=== PATIENT | female | born 1955 | race African-American/Black ===

== ENCOUNTER 2024-11-04 09:53 | Emergency (ER) | payer MEDICARE, MEDICAID ==
[~2024-11-04] VITALS: Ht 167.6 cm; Wt 80.0 kg
[2024-11-04 10:00] VITALS: O2SAT 100
[2024-11-04 11:13] LABS: BASOPHILS % 0.3 % (0.0-2.0); DIFFERENTIAL COMMENT 0; EOSINOPHILS % 0.1 % (0.0-5.0); HEMATOCRIT. 36.3 % (36.0-48.0); HEMOGLOBIN. 11.9 g/dL (12.0-16.0); LYMPHOCYTES % 17.4 % (20.0-50.0); MEAN CORPUSCULAR HEMOGLOBIN 29.1 pg (28.0-32.0); MEAN CORPUSCULAR HGB CONC 32.8 g/dL (31.0-37.0); MEAN CORPUSCULAR VOLUME 88.6 fL (81.0-99.0); MEAN PLATELET VOLUME 9.8 fl (7.4-10.4); MONOCYTES % 10.9 % (2.0-8.0); NEUTROPHILS % 71.3 % (40.0-76.0); PLATELET 205 x1000/uL (130-400); RED BLOOD CELL COUNT 4.09 mill/uL (4.2-5.4); RED CELL DISTRIBUTION WIDTH 15.3 % (11.6-14.6); WHITE BLOOD COUNT 8.3 x1000/uL (4.5-11.0)
[2024-11-04 11:16] LABS: CHLORIDE 110 mEq/L (98-107); POTASSIUM 3.7 mEq/L (3.5-5.1); SODIUM 139 mEq/L (136-145)
[2024-11-04 11:17] LABS: CALCIUM 9.5 mg/dL (8.7-10.4); CARBON DIOXIDE 23 mEq/L (21-32)
[2024-11-04 11:22] LABS: CREATININE 1.2 mg/dL (0.6-1.0); GLUCOSE 108 mg/dL (70-105); UREA NITROGEN BLOOD 11 mg/dL (9-23)
[2024-11-04 11:24] LABS: TROPONIN I HIGH SENSITIVITY 18 ng/L (3.0-34)
[2024-11-04] MEDS: ASPIRIN 81MG TABLET PO ONE (11:54)
[2024-11-04 12:25] VITALS: BP 172/98; PULSE 90; RESP 16; TEMP 37.1; O2SAT 99
== END 2024-11-04 12:26 | disposition home or self-care (01) ==
LOC: ER 10:07
DX: I16.0 Hypertensive urgency (principal); I11.0 Hypertensive heart disease with heart failure; I25.2 Old myocardial infarction; I49.3 Ventricular premature depolarization; I50.9 Heart failure, unspecified; R56.9 Unspecified convulsions
CPT/HCPCS: 36415; 71045; 80048; 83880; 84484; 85025; 93005; 99285

== ENCOUNTER 2025-01-08 10:15 | Inpatient (IN) | payer MEDICARE, MEDICAID ==
[~2025-01-08] VITALS: Ht 167.6 cm; Wt 75.7 kg
[2025-01-08 10:54] LABS: CHLORIDE 108 mEq/L (98-107); POTASSIUM 3.3 mEq/L (3.5-5.1); SODIUM 140 mEq/L (136-145)
[2025-01-08 10:55] LABS: CARBON DIOXIDE 20 mEq/L (21-32)
[2025-01-08 10:56] LABS: CALCIUM 9.3 mg/dL (8.7-10.4)
[2025-01-08 10:57] LABS: BASOPHILS % 0.9 % (0.0-2.0); DIFFERENTIAL COMMENT 0; EOSINOPHILS % 0.4 % (0.0-5.0); HEMOGLOBIN. 12.3 g/dL (12.0-16.0); LYMPHOCYTES % 17.7 % (20.0-50.0); MEAN CORPUSCULAR HEMOGLOBIN 30.6 pg (28.0-32.0); MEAN CORPUSCULAR HGB CONC 33.4 g/dL (31.0-37.0); MEAN CORPUSCULAR VOLUME 91.6 fL (81.0-99.0); MONOCYTES % 10.5 % (2.0-8.0); NEUTROPHILS % 70.5 % (40.0-76.0); PLATELET 224 x1000/uL (130-400); RED BLOOD CELL COUNT 4.03 mill/uL (4.2-5.4); RED CELL DISTRIBUTION WIDTH 16.5 % (11.6-14.6); WHITE BLOOD COUNT 5.4 x1000/uL (4.5-11.0)
[2025-01-08 11:00] LABS: CREATININE 1.3 mg/dL (0.6-1.0); GLUCOSE 142 mg/dL (70-105); PARTIAL THROMBOPLASTIN TIME 27.6 sec (23.4-31.0); PROTHROMBIN TIME 10.9 sec (9.6-11.0)
[2025-01-08] MEDS ORDERED: ALBUTEROL (0.083%) 2.5MG/3ML NEB HHN SCH (11:00)
[2025-01-08 11:01] LABS: UREA NITROGEN BLOOD 14 mg/dL (9-23)
[2025-01-08 11:05] LABS: TROPONIN I HIGH SENSITIVITY 55 ng/L (3.0-34)
[2025-01-08 11:28] VITALS: PULSE 95; RESP 25; O2SAT 97
[2025-01-08] MEDS: METHYLPREDNISOLONE SOD SUCC 125MG/2ML (ACT-O-VIAL) IV STA (11:28)
[2025-01-08] MEDS: IPRATROPIUM BROMIDE (0.02%) 0.5MG/2.5ML NEB HHN STA (11:29)
[2025-01-08 12:00] VITALS: PULSE 100; RESP 22; O2SAT 98
[2025-01-08] MEDS: CEFTRIAXONE 1GM/50ML 50 ML IV ONE (12:11)
[2025-01-08] MEDS: FUROSEMIDE 40MG/4ML VIAL IVP ONE (12:11)
[2025-01-08 12:30] VITALS: PULSE 102; RESP 23; O2SAT 98
[2025-01-08] MEDS: AZITHROMYCIN 500MG/250ML 250 ML IV STA (13:03)
[2025-01-08 14:10] LABS: TROPONIN I HIGH SENSITIVITY 49 ng/L (3.0-34)
[2025-01-08] MEDS: ISOSORBIDE MONONITRATE 30MG TABLET SR 24HR PO SCH (15:15)
[2025-01-08] MEDS: ASPIRIN 325MG EC TABLET PO SCH (15:30)
[2025-01-08] MEDS: ENOXAPARIN 40MG/0.4ML SYR SUBCUT SCH (15:30)
[2025-01-08] MEDS ORDERED: MAGNESIUM/ALUMINUM HYDROXIDE/SIMETHICONE 30ML UDC PO PRN (15:30)
[2025-01-08] MEDS ORDERED: DEXTROSE 50% WATER 50ML SYRINGE IV PRN (15:30)
[2025-01-08] MEDS ORDERED: MORPHINE SULFATE 2 MG/ML INJ (NOT FOR IM USE) IV PRN (15:30)
[2025-01-08] MEDS ORDERED: GUAIFENESIN 200MG/10ML SUGAR FREE UDC PO PRN (15:30)
[2025-01-08] MEDS ORDERED: HYDRALAZINE 20MG/ML VIAL IV PRN (15:30)
[2025-01-08 16:00] VITALS: BP 188/115; PULSE 89; RESP 20; TEMP 36.7; O2SAT 98
[2025-01-08] MEDS: METHYLPREDNISOLONE SOD SUCC 40MG/ML (ACT-O-VIAL) IV SCH (16:20)
[2025-01-08] MEDS: POTASSIUM CHLORIDE 20MEQ/PACKET PO SCH (16:25)
[2025-01-08] MEDS: NIFEDIPINE XL 30MG TAB PO SCH (16:31)
[2025-01-08] MEDS: BLOOD SUGAR DIAGNOSTIC STRIP TEST SCH (17:40)
[2025-01-08 19:05] VITALS: BP 188/115; PULSE 89; RESP 20; TEMP 36.7
[2025-01-08 20:00] VITALS: BP 150/94; PULSE 95; RESP 20; TEMP 36.6; O2SAT 95
[2025-01-08] MEDS ORDERED: ALBU18HF2 IH (21:00)
[2025-01-08] MEDS ORDERED: DIPH50TA (21:00)
[2025-01-08] MEDS ORDERED: MELA10TA20 MT (21:00)
[2025-01-08] MEDS ORDERED: HYDR25TA MT (21:00)
[2025-01-08] MEDS ORDERED: POLY17PO3 PO (21:00)
[2025-01-08] MEDS ORDERED: VALS160T28 MT (21:00)
[2025-01-08] MEDS ORDERED: AMLO10TA80 MT (21:00)
[2025-01-08] MEDS: METOPROLOL TARTRATE 25MG TABLET PO SCH (21:46)
[2025-01-08] MEDS: INSULIN LISPRO 100 UNITS/ML SUBCUT SCH (21:47)
[2025-01-08] MEDS: ATORVASTATIN CALCIUM 40MG TABLET PO SCH (21:48)
[2025-01-08] MEDS: MELATONIN 3MG TABLET PO SCH (22:21)
[2025-01-09] VITALS (8 sets, daily range): BP systolic 124–159; BP diastolic 82–104; PULSE 78–92; RESP 17–22; TEMP 36.2–36.6; O2SAT 95–99
[2025-01-09] MEDS: HYDROCODONE/ACETAMINOPHEN 5/325MG TABLET PO PRN (05:11)
[2025-01-09 06:03] LABS: *AMPHETAMINES SCREEN URINE NEGATIVE (NEGATIVE)
[2025-01-09 06:04] LABS: *BARBITURATES SCREEN URINE NEGATIVE (NEGATIVE); *BENZODIAZEPINES SCREEN URINE NEGATIVE (NEGATIVE); *COCAINE SCREEN URINE NEGATIVE (NEGATIVE); CANNABINOID URINE SCREEN NEGATIVE (NEGATIVE); ECSTASY MDMA SCREEN URINE NEGATIVE (NEGATIVE); METHADONE URINE SCREEN NEGATIVE (NEGATIVE); OPIATES URINE SCREEN NEGATIVE (NEGATIVE); PHENCYCLIDINE URINE SCREEN NEGATIVE (NEGATIVE)
[2025-01-09 06:44] LABS: POTASSIUM 3.9 mEq/L (3.5-5.1)
[2025-01-09 06:45] LABS: CALCIUM 10.4 mg/dL (8.7-10.4)
[2025-01-09 06:50] LABS: CREATININE 1.5 mg/dL (0.6-1.0)
[2025-01-09] MEDS: FUROSEMIDE 40MG/4ML VIAL IVP SCH (08:44)
[2025-01-09] MEDS: EMPAGLIFLOZIN 10MG TABLET PO SCH (08:44)
[2025-01-09] MEDS: ASPIRIN 81MG TABLET PO SCH (08:44)
[2025-01-09] MEDS: PANTOPRAZOLE SODIUM 40 MG/VIAL IV SCH (09:00)
[2025-01-09] MEDS: IPRATROPIUM/ALBUTEROL 0.5-3(2.5)MG/3ML NEB NEB SCH (09:35)
[2025-01-09 09:44] LABS: BG BASE EXCESS -1.8 mmol/L (-2.0-3.0); BG DEOXYHEMOGLOBIN 13.4 % (0.0-5.0); BG FRACTION INSPIRED OXYGEN 21; BG OXYGEN SATURATION 86.5 % (94.0-98.0); BG OXYHEMOGLOBIN 85.6 % (94.0-98.0); BG PCO2 34.6 mmHg (32.0-45.0); BG PH 7.422 (7.350-7.450); BG PO2 52.8 mmHg (83.0-108.0); BG SAMPLE SITE RIGHT RADIAL; BG TOTAL HEMOGLOBIN 13.4 g/dL (12.0-16.0); BG VENT MODE ROOM AIR
[2025-01-09] MEDS ORDERED: MEDICATION NOT ON FORMULARY EA (Melatonin 1 TAB) MT SCH (21:00)
[2025-01-10] VITALS (9 sets, daily range): BP systolic 107–138; BP diastolic 64–93; PULSE 71–90; RESP 17–22; TEMP 36.3–36.6; O2SAT 95–100
[2025-01-10 07:41] LABS: BASOPHILS % 0.3 % (0.0-2.0); HEMATOCRIT. 36.9 % (36.0-48.0); HEMOGLOBIN. 12.3 g/dL (12.0-16.0); LYMPHOCYTES % 7.1 % (20.0-50.0); MEAN CORPUSCULAR HEMOGLOBIN 30.4 pg (28.0-32.0); MEAN CORPUSCULAR HGB CONC 33.4 g/dL (31.0-37.0); MEAN CORPUSCULAR VOLUME 91.1 fL (81.0-99.0); MEAN PLATELET VOLUME 10.5 fl (7.4-10.4); MONOCYTES % 3.3 % (2.0-8.0); NEUTROPHILS % 89.3 % (40.0-76.0); PLATELET 264 x1000/uL (130-400); RED BLOOD CELL COUNT 4.05 mill/uL (4.2-5.4); RED CELL DISTRIBUTION WIDTH 16.1 % (11.6-14.6); WHITE BLOOD COUNT 14.7 x1000/uL (4.5-11.0)
[2025-01-10 08:06] LABS: POTASSIUM 3.9 mEq/L (3.5-5.1)
[2025-01-10 08:07] LABS: CALCIUM 9.9 mg/dL (8.7-10.4)
[2025-01-10 08:11] LABS: CREATININE 1.9 mg/dL (0.6-1.0)
[2025-01-10] MEDS ORDERED: NALOXONE HCL 0.4MG/ML VIAL IV PRN (11:45)
[2025-01-10] MEDS: SODIUM CHLORIDE 0.9% 1,000 ML IV SCH (12:01)
[2025-01-10] MEDS: ENOXAPARIN 30MG/0.3ML SYR SUBCUT SCH (12:53)
[2025-01-11] VITALS (7 sets, daily range): BP systolic 128–149; BP diastolic 68–114; PULSE 78–83; RESP 16–20; TEMP 36.1–36.8; O2SAT 98–99
[2025-01-11 06:27] LABS: POTASSIUM 3.9 mEq/L (3.5-5.1)
[2025-01-11 06:28] LABS: CALCIUM 9.7 mg/dL (8.7-10.4)
[2025-01-11 06:33] LABS: CREATININE 2.2 mg/dL (0.6-1.0)
[2025-01-11] MEDS: QUETIAPINE FUMARATE 25MG TABLET PO SCH (16:41)
[2025-01-12] VITALS (7 sets, daily range): BP systolic 130–165; BP diastolic 80–99; PULSE 68–83; RESP 16–20; TEMP 35.9–37.1; O2SAT 97–99
[2025-01-12] MEDS: METHYLPREDNISOLONE SOD SUCC 40MG/ML (ACT-O-VIAL) IV SCH (06:00)
[2025-01-12] MEDS: CLONIDINE 0.1MG TABLET PO PRN (07:13)
[2025-01-12 09:54] LABS: BASOPHILS % 0.1 % (0.0-2.0); HEMATOCRIT. 37.9 % (36.0-48.0); HEMOGLOBIN. 12.4 g/dL (12.0-16.0); LYMPHOCYTES % 12.4 % (20.0-50.0); MEAN CORPUSCULAR HEMOGLOBIN 30.1 pg (28.0-32.0); MEAN CORPUSCULAR HGB CONC 32.9 g/dL (31.0-37.0); MEAN CORPUSCULAR VOLUME 91.5 fL (81.0-99.0); MEAN PLATELET VOLUME 10.5 fl (7.4-10.4); MONOCYTES % 7.8 % (2.0-8.0); NEUTROPHILS % 79.7 % (40.0-76.0); PLATELET 264 x1000/uL (130-400); RED BLOOD CELL COUNT 4.13 mill/uL (4.2-5.4); RED CELL DISTRIBUTION WIDTH 16.4 % (11.6-14.6); WHITE BLOOD COUNT 11.3 x1000/uL (4.5-11.0)
[2025-01-12 09:57] LABS: POTASSIUM 3.8 mEq/L (3.5-5.1)
[2025-01-12 09:58] LABS: CALCIUM 9.2 mg/dL (8.7-10.4)
[2025-01-12 10:03] LABS: CREATININE 1.9 mg/dL (0.6-1.0)
[2025-01-12] MEDS ORDERED: QUET25TA PO (12:51)
[2025-01-12] MEDS ORDERED: METO25TA6 PO (12:51)
[2025-01-12] MEDS ORDERED: NIFE-33 PO (12:51)
[2025-01-12] MEDS ORDERED: ALBU18HF2 IH (12:51)
[2025-01-12] MEDS ORDERED: ISOS30TA91 PO (12:51)
[2025-01-12] MEDS ORDERED: METH4TAB95 MT (12:51)
[2025-01-12] MEDS ORDERED: ASPI-1160 PO (12:51)
[2025-01-12] MEDS ORDERED: LIP40 PO (12:51)
== END 2025-01-12 17:37 | disposition home health service (06) | DRG 280 ==
LOC: ER 10:15 → 7WST 13:30 → EDBEDREQ 13:33 → ENRESERV 13:39
PROVIDERS: ADMIT Internal Medicine; ATTEND Internal Medicine
DX: I11.0 Hypertensive heart disease with heart failure (principal); J96.01 Acute respiratory failure with hypoxia; I21.A1 Myocardial infarction type 2; N17.9 Acute kidney failure, unspecified; J44.1 Chronic obstructive pulmonary disease with (acute) exacerbation; I50.9 Heart failure, unspecified; E78.5 Hyperlipidemia, unspecified; Z72.0 Tobacco use
CPT/HCPCS: 36415; 36600; 71045; 80048; 80305; 82375; 82805; 82962; 83036; 83880; 84484; 85025; 93005; 93970; 94070; 94640; 94664; 98960; 99291; A4606; J0456; J0696; J1650; J1815; J1940; J2470; J2919; J7030